=== PATIENT | female | born 1965 | race African-American/Black ===

== ENCOUNTER 2024-06-03 01:53 | Emergency (ER) | payer BC, MEDICAID ==
[~2024-06-03] VITALS: Ht 154.9 cm; Wt 62.0 kg
[2024-06-03 01:57] VITALS: TEMP 98; O2SAT 97
[2024-06-03] MEDS ORDERED: PANTOPRAZOLE 80 MG in SODIUM CHLORIDE 0.9% 80 ML IV ONE (02:00)
[2024-06-03] MEDS ORDERED: ALBUTEROL (0.5%) 2.5MG/0.5ML NEB HHN ONE (02:00)
[2024-06-03] MEDS: ONDANSETRON HCL 4MG/2ML INJ IV ONE (02:37)
[2024-06-03] MEDS: SODIUM CHLORIDE 0.9% 1,000 ML IV ONE (02:37)
[2024-06-03] MEDS: MAGNESIUM/ALUMINUM HYDROXIDE/SIMETHICONE 30ML UDC PO STA (02:38)
[2024-06-03 02:47] LABS: BASOPHILS % 0.2 % (0.0-2.0); HEMATOCRIT. 35.6 % (36.0-48.0); HEMOGLOBIN. 11.6 g/dL (12.0-16.0); LYMPHOCYTES % 24.9 % (20.0-50.0); MEAN CORPUSCULAR HEMOGLOBIN 26.6 pg (28.0-32.0); MEAN CORPUSCULAR HGB CONC 32.5 g/dL (31.0-37.0); MEAN CORPUSCULAR VOLUME 81.6 fL (81.0-99.0); MEAN PLATELET VOLUME 7.8 fl (7.4-10.4); NEUTROPHILS % 63.9 % (40.0-76.0); PLATELET 249 x1000/uL (130-400); RED BLOOD CELL COUNT 4.37 mill/uL (4.2-5.4); RED CELL DISTRIBUTION WIDTH 16.7 % (11.6-14.6); WHITE BLOOD COUNT 8.6 x1000/uL (4.5-11.0)
[2024-06-03 02:54] LABS: CARBON DIOXIDE 30 mEq/L (21-32); CHLORIDE 103 mEq/L (98-107); POTASSIUM 3.2 mEq/L (3.5-5.1); SODIUM 140 mEq/L (136-145)
[2024-06-03 02:55] LABS: CALCIUM 9.3 mg/dL (8.7-10.4)
[2024-06-03 02:59] LABS: CREATININE 0.6 mg/dL (0.6-1.0)
[2024-06-03 03:00] LABS: GLUCOSE 110 mg/dL (70-105); UREA NITROGEN BLOOD 9 mg/dL (9-23)
[2024-06-03 03:01] LABS: ALANINE AMINOTRANSFERASE 21 IU/L (10-49); ALBUMIN 3.9 g/dL (3.2-4.8); ASPARTATE AMINOTRANSFERASE 41 IU/L (<34)
[2024-06-03 03:02] LABS: BILIRUBIN DIRECT 0.2 mg/dL (<=3.0); BILIRUBIN TOTAL 0.6 mg/dL (0.1-1.0); PROTEIN TOTAL 7.2 g/dL (6.0-8.3)
[2024-06-03 03:03] LABS: ETHANOL BLOOD < 10 mg/dL (<10)
[2024-06-03 03:05] LABS: INR 1.1; PROTHROMBIN TIME 12.3 sec (9.6-11.0)
[2024-06-03] MEDS: MORPHINE SULFATE 4 MG/ML INJ (FOR IV/IM USE) IV ONE (03:09)
[2024-06-03 03:25] VITALS: BP 142/78; PULSE 109; RESP 15; O2SAT 96
[2024-06-03] MEDS: ACETAMINOPHEN 1000MG/100ML 100 ML IV ONE (03:46)
[2024-06-03] MEDS ORDERED: MAG355OR21 MT (04:29)
[2024-06-03] MEDS ORDERED: ONDA4TAB50 MT (04:29)
[2024-06-03] MEDS ORDERED: PROT40 MT (04:29)
== END 2024-06-03 04:40 | disposition home or self-care (01) ==
LOC: ER 01:53
DX: K29.70 Gastritis, unspecified, without bleeding (principal); J44.9 Chronic obstructive pulmonary disease, unspecified; D64.9 Anemia, unspecified; Z88.0 Allergy status to penicillin; Z79.899 Other long term (current) drug therapy; Z00.00 Encounter for general adult medical examination without abnormal findings
CPT/HCPCS: 80076; 80048; 80320; 83690; 85025; 85610; 36415; 96361; 96365; 96375; 99284; J2405; J2470; J2270; J7050; J7030; G0480; J0131